=== PATIENT | female | born 1980 | race Caucasian/White ===

== ENCOUNTER 2025-01-27 18:38 | Emergency (ER) | payer MEDICAID, OTHER ==
[~2025-01-27] VITALS: Ht 149.9 cm; Wt 125.0 kg
[2025-01-27 18:39] VITALS: TEMP 98.7
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
[2025-01-27] MEDS: normal saline 1000ML IV soln IVB ONE (19:48)
[2025-01-27 19:52] LABS: MEAN PLATELET VOLUME 8.6 FL (7.4-10.4); RED CELL DISTRIBUTION WIDTH 14.7 % (11.5-14.5)
[2025-01-27 20:23] LABS: CREATININE 0.71 MG/DL (0.40-0.90); TOTAL CARBON DIOXIDE 26.4 MMOL/L (24-32); eCRCL 68 ML/MIN; eGFR 89 ML/MIN
[2025-01-27 20:26] LABS: ETHANOL 395 MG/DL (<10)
[2025-01-27 21:18] VITALS: BP 124/81; PULSE 92; RESP 18; O2SAT 97
--- NOTE | 2025-01-27 21:33 | DISCHARGE PACKET ---
Patient Discharge Instructions Discharge Instructions JUSTIN ANN MD Jan 27, 2025 21:33
== END 2025-01-27 21:41 ==
LOC: ER 18:38
DX: F10.129 Alcohol abuse with intoxication, unspecified (principal); F12.90 Cannabis use, unspecified, uncomplicated; Z88.0 Allergy status to penicillin; Z88.8 Allergy status to other drugs, medicaments and biological substances; Z98.890 Other specified postprocedural states; Y90.8 Blood alcohol level of 240 mg/100 ml or more; V49.40XA Driver injured in collision with unspecified motor vehicles in traffic accident, initial encounter; Y93.89 Activity, other specified; Y92.481 Parking lot as the place of occurrence of the external cause; Y99.8 Other external cause status
CPT/HCPCS: 36415; 80048; 80320; 85025; 96360; 99283; J7030

== ENCOUNTER 2025-02-09 13:35 | Emergency (ER) | payer SELFPAY ==
[~2025-02-09] VITALS: Ht 160 cm; Wt 61.4 kg
[2025-02-09] MEDS: TETanus/Pertussis (Acell)/Diphther VAC/PF (Tdap-Adult) 0.5ml syringe IMVAC ONE (14:07)
[2025-02-09] MEDS ORDERED: SULF1TAB45 PO (14:09)
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
== END 2025-02-09 14:25 | disposition home or self-care (01) ==
LOC: ER 13:36
DX: S61.214A Laceration without foreign body of right ring finger without damage to nail, initial encounter (principal); S61.216A Laceration without foreign body of right little finger without damage to nail, initial encounter; F10.129 Alcohol abuse with intoxication, unspecified; F12.90 Cannabis use, unspecified, uncomplicated; Z88.0 Allergy status to penicillin; Z79.899 Other long term (current) drug therapy; Y90.9 Presence of alcohol in blood, level not specified; X58.XXXA Exposure to other specified factors, initial encounter; Y93.89 Activity, other specified; Y92.89 Other specified places as the place of occurrence of the external cause; Y99.8 Other external cause status
CPT/HCPCS: 99283; A6449